=== PATIENT | female | born 1940 | race Caucasian/White ===

== ENCOUNTER 2017-10-22 08:05 | Day surgery (SDC) | payer MEDICARE, OTHER ==
[~2017-10-22 08:05] MED LIST: Buffered Lidocaine 0.9% SYRIN* 5 ML/SYR SYRINGE INTRADERM ONE
[2017-10-22] MEDS ORDERED: ceFAZolin 2 GM in NS PREMIX(*) 2 GM/100 ML BAG IVPB ONE (08:23)
[2017-10-22] MEDS ORDERED: Bupivacaine 0.25% SDV PF* 10 ML VIAL INJ ONE (10:19)
[2017-10-22] MEDS ORDERED: Midazolam* 1 MG/ML 5 ML VIAL (5 MG) ONE (10:21)
[2017-10-22] MEDS ORDERED: Bupivacaine 0.5% SDV PF* 30ML VIAL ONE (10:23)
[2017-10-22] MEDS ORDERED: fentaNYL* 50 MCG/ML 2 ML VIAL (100 MCG VIAL) ONE ×2 (10:39→12:11)
[2017-10-22] MEDS ORDERED: Propofol* 10 MG/ML 20 ML BTL IV PUSH ONE (10:55)
[2017-10-22] MEDS ORDERED: Ondansetron INJ* 2 MG/ML VIAL IV PRN (11:09)
[2017-10-22] MEDS ORDERED: fentaNYL* 50 MCG/ML 2 ML VIAL (100 MCG VIAL) IV PRN (11:09)
[2017-10-22] MEDS ORDERED: Naloxone* 0.4 MG/ML 1 ML VIAL IV PRN (11:09)
[2017-10-22] MEDS ORDERED: oxyCODONE/Acetamin 5/325 MG* TAB PO PRN (11:09)
[2017-10-22] MEDS ORDERED: Ketorolac INJ* 30 MG/ML 1 ML VIAL ONE (11:10)
[2017-10-22] MEDS ORDERED: oxyCODONE/Acetamin 5/325 MG* TAB ONE (12:11)
[2017-10-22 12:52] VITALS: BP 131/57
--- NOTE | 2017-10-22 22:13 | OP ---
DATE OF OPERATION: 10/22/17 - SDS DATE OF : 40 SURGEON: Reece Chan MD [employer] US[employer] INTERFACE DEVELOPER: Ana Garcia PA-C PRE-OP DIAGNOSIS: Severe right hallux valgus deformity with degenerative arthritis. POST-OP DIAGNOSIS: Severe right hallux valgus deformity with degenerative arthritis. OPERATIVE PROCEDURE: Right first MTP joint fusion. DESCRIPTION OF PROCEDURE: The patient was taken to the operating room where a longitudinal incision was made over the dorsum of the hallux. Medial, lateral flaps raised to allow visualization of the joint. There was cartilage damage noted on both sides of the joint. We subluxed the joint to allow intramedullary pinning of first the metatarsal to allow the orbital reamer and then on the proximal phalanx to allow the convex reamer. The matching bones were then opposed in neutral position and a 3.0 mm lag screw was placed at proximal medial to distal dorsal. We then fashioned a straight ___ 3.0 mm right plate to fit the dorsum first MTP joint fusion. Combination of locking and nonlocking screws were used and neutral alignment obtained with good fixation. X-rays intraoperatively showed satisfactory alignment. We then enclosed the capsule with 3-0 Vicryl, 4-0 nylon for the skin, and a compression dressing. [id number]/[facility] #: [id number] [facility]
--- NOTE | 2017-10-23 07:21 | RAD ---
INDICATION: Bunion operative reduction internal fixation right foot. COMPARISON: Comparison is made with a prior x-ray study of the right foot from October 11, 2017. TECHNIQUE: 2.5 seconds of intermittent fluoroscopic guidance were provided and a single spot film of the right foot was obtained in the operating room. FINDINGS: The patient is status post fusion of the first metatarsal-phalangeal joint. There is a metallic plate spanning the joint space transfixed with multiple screws. There is also single additional screw spanning the joint space. IMPRESSION: INTRAOPERATIVE CONTROL FILMS. CPT II Codes: G9500
== END 2017-10-22 13:20 | disposition home or self-care (01) ==
LOC: OR 08:05
PROVIDERS: ATTEND Orthopaedic Surgery
DX: M19.071 Primary osteoarthritis, right ankle and foot (principal); M20.11 Hallux valgus (acquired), right foot; I10 Essential (primary) hypertension; G47.33 Obstructive sleep apnea (adult) (pediatric); K21.9 Gastro-esophageal reflux disease without esophagitis
CPT/HCPCS: 76000; 88305; A9270-GY; C1713; J0690; J1885; J2250; J2704; J3010; J3490

== ENCOUNTER 2020-10-16 16:50 | Inpatient (IN) ==
[2020-10-16] MEDS ORDERED: Ondansetron 4 mg VIAL 2 MG/ML 2 ml VIAL IV ONE (20:31)
[2020-10-16 21:10] LABS: Rapid COVID-19 Molecular Undetected (Undetected)
[2020-10-16 21:23] LABS: Hematocrit 40 % (35-47); Mean Corpuscular HGB Conc 35 g/dL (31-36); Mean Corpuscular Hemoglobin 32 pg (27-31); Mean Corpuscular Volume 92 fL (80-97); Mean Platelet Volume 9.3 fL (7.4-10.4); Platelet Count 134 10^3/uL (150-450); Red Cell Distribution Width 12 % (10-15); White Blood Count 1.2 10^3/uL (3.5-10.8)
[2020-10-16 21:35] LABS: Influenza A Molecular Negative (Negative); Influenza B Molecular Negative (Negative)
[2020-10-16 21:37] LABS: ABS Lymphocytes 0.5 10^3/ul (1.0-4.8); Lymphocyte % 37.9 %; Nucleated Red Blood Cells % 0.4
[2020-10-16 21:40] LABS: Activated Partial Thrombo Time 28.9 seconds (26.0-38.0); Albumin 3.6 g/dL (3.2-5.2); Albumin/Globulin Ratio 1.4 (1-3); C Reactive Protein 195.12 mg/L (<8.01); Calcium 8.6 mg/dL (8.6-10.3); EGFR African American 112.1 (>60); EGFR Non-African American 92.6 (>60); Globulin 2.6 g/dL (2-4); INR 1.08 (0.86-1.15); Potassium 3.7 mmol/L (3.5-5.0); Total Bilirubin 0.8 mg/dL (0.2-1.0); Total Protein 6.2 g/dL (6.4-8.9)
[2020-10-16 21:41] LABS: Troponin I 0.01 ng/mL (<0.03)
[2020-10-16] MEDS ORDERED: Piperacillin/Tazobac ADVAN 3.375 GM in NS 0.9% 100 ml BAG 100 ML IV ONE (21:53)
[2020-10-16] MEDS ORDERED: VERAPAMIL 300 MG PO ONE (22:04)
[2020-10-16 22:11] LABS: ABS Neutrophils 0.7 10^3/ul (1.5-7.7)
[2020-10-16] MEDS ORDERED: Cefepime 2 GM in Dextrose 2 GM/50 ML BAG IV ONE (22:40)
[2020-10-16] MEDS ORDERED: Prochlorperazine 5 mg/ml 2 ml VIAL (10 mg) IV PRN (22:43)
[2020-10-16] MEDS ORDERED: NS 0.9% 1000 ml BAG 1,000 ML IV SCH (22:45)
[2020-10-17] MEDS: Enoxaparin 40 MG/0.4 ML SYR SUBCUT SCH ×2 (02:08→20:09)
[2020-10-17] MEDS: Nystatin SUSPENSION 100,000 UNITS/ML UDC PO SCH ×5 (02:08→20:09)
[2020-10-17 06:49] LABS: EGFR African American 112.1 (>60); EGFR Non-African American 92.6 (>60); Potassium 3.6 mmol/L (3.5-5.0)
[2020-10-17 06:52] LABS: ABS Lymphocytes 0.4 10^3/ul (1.0-4.8); ABS Monocytes 0.1 10^3/ul (0-0.8); ABS Neutrophils 0.2 10^3/ul (1.5-7.7); Eosinophil % 1.6 %; Hematocrit 37 % (35-47); Hemoglobin 12.9 g/dL (12.0-16.0); Lymphocyte % 58.3 %; Mean Corpuscular HGB Conc 35 g/dL (31-36); Mean Corpuscular Hemoglobin 32 pg (27-31); Mean Corpuscular Volume 92 fL (80-97); Mean Platelet Volume 9.3 fL (7.4-10.4); Nucleated Red Blood Cells % 0.1; Platelet Count 126 10^3/uL (150-450); Red Cell Distribution Width 12 % (10-15); White Blood Count 0.8 10^3/uL (3.5-10.8)
[2020-10-17] MEDS: Ondansetron 4 mg VIAL 2 MG/ML 2 ml VIAL IV PRN (08:41)
[2020-10-17] MEDS ORDERED: Cefepime 2 GM in Dextrose 2 GM/50 ML BAG IV SCH (09:00)
[2020-10-17] MEDS: Cefepime 2 GM in Dextrose 2 GM/50 ML BAG IV SCH (17:11)
[2020-10-18] MEDS: Cefepime 2 GM in Dextrose 2 GM/50 ML BAG IV SCH ×3 (01:29→17:15)
[2020-10-18 01:43] LABS: Urine Appearance Cloudy; Urine Bilirubin Negative (Negative); Urine Blood 1+ (Negative); Urine Color Yellow; Urine Glucose 3+(>=500 mg/dL) (Negative); Urine Ketones 1+ (Negative); Urine Nitrite Negative (Negative); Urine Protein 2+(100 mg/dL) (Negative); Urine Urobilinogen Negative (Negative)
[2020-10-18 01:50] LABS: Urine Bacteria Absent (Absent); Urine Red Blood Cell 1+(3-5/hpf) (Absent); Urine White Blood Cell Trace(0-5/hpf) (Absent)
[2020-10-18] MEDS: Nystatin SUSPENSION 100,000 UNITS/ML UDC PO SCH ×4 (09:29→20:16)
[2020-10-18 12:50] LABS: Hematocrit 36 % (35-47); Hemoglobin 12.4 g/dL (12.0-16.0); Mean Corpuscular HGB Conc 34 g/dL (31-36); Mean Corpuscular Hemoglobin 32 pg (27-31); Mean Corpuscular Volume 93 fL (80-97); Platelet Count 146 10^3/uL (150-450); Red Blood Count 3.89 10^6 /uL (3.70-4.87); Red Cell Distribution Width 12 % (10-15)
[2020-10-18 13:05] LABS: Calcium 7.9 mg/dL (8.6-10.3); EGFR African American 131.4 (>60); EGFR Non-African American 108.6 (>60); Potassium 3.2 mmol/L (3.5-5.0)
[2020-10-18] MEDS: NS 0.9% 1000 ml BAG 1,000 ML IV SCH (13:45)
[2020-10-18 14:56] LABS: ABS Lymphocytes 0.4 10^3/ul (1.0-4.8); ABS Monocytes 0.4 10^3/ul (0-0.8); ABS Neutrophils 0.1 10^3/ul (1.5-7.7); Eosinophil % 2.4 %; Lymphocyte % 41.4 %; Nucleated Red Blood Cells % 0.2
[2020-10-18] MEDS: Enoxaparin 40 MG/0.4 ML SYR SUBCUT SCH (20:01)
[2020-10-19] MEDS: Cefepime 2 GM in Dextrose 2 GM/50 ML BAG IV SCH ×3 (00:59→20:40)
[2020-10-19 05:50] LABS: Hematocrit 37 % (35-47); Mean Corpuscular HGB Conc 35 g/dL (31-36); Mean Corpuscular Hemoglobin 33 pg (27-31); Mean Corpuscular Volume 93 fL (80-97); Mean Platelet Volume 8.8 fL (7.4-10.4); Platelet Count 192 10^3/uL (150-450); Red Blood Count 3.98 10^6 /uL (3.70-4.87); Red Cell Distribution Width 12 % (10-15); White Blood Count 1.4 10^3/uL (3.5-10.8)
[2020-10-19 05:55] LABS: ABS Lymphocytes 0.4 10^3/ul (1.0-4.8); ABS Monocytes 0.8 10^3/ul (0-0.8); ABS Neutrophils 0.2 10^3/ul (1.5-7.7); Eosinophil % 0.4 %; Lymphocyte % 29.5 %; Nucleated Red Blood Cells % 0.1
[2020-10-19 06:09] LABS: EGFR African American 123.5 (>60); EGFR Non-African American 102.1 (>60); Potassium 3.5 mmol/L (3.5-5.0)
[2020-10-19] MEDS: NS 0.9% 1000 ml BAG 1,000 ML IV SCH (09:32)
[2020-10-19] MEDS: Nystatin SUSPENSION 100,000 UNITS/ML UDC PO SCH ×4 (09:41→20:19)
[2020-10-19] MEDS ORDERED: Remdesivir 100 mg Vial 200 MG in NS 0.9% 250 ml 210 ML IV ONE (15:15)
[2020-10-19] MEDS: Ondansetron 4 mg VIAL 2 MG/ML 2 ml VIAL IV PRN (20:19)
[2020-10-19] MEDS: Enoxaparin 40 MG/0.4 ML SYR SUBCUT SCH (20:20)
[2020-10-20] MEDS: Cefepime 2 GM in Dextrose 2 GM/50 ML BAG IV SCH ×2 (09:45→21:24)
[2020-10-20] MEDS: Nystatin SUSPENSION 100,000 UNITS/ML UDC PO SCH ×4 (09:46→21:25)
[2020-10-20 16:20] LABS: Hematocrit 39 % (35-47); Hemoglobin 13.8 g/dL (12.0-16.0); Mean Corpuscular HGB Conc 35 g/dL (31-36); Mean Corpuscular Hemoglobin 33 pg (27-31); Mean Corpuscular Volume 93 fL (80-97); Mean Platelet Volume 8.2 fL (7.4-10.4); Platelet Count 293 10^3/uL (150-450); Red Blood Count 4.22 10^6 /uL (3.70-4.87); Red Cell Distribution Width 13 % (10-15); White Blood Count 4.1 10^3/uL (3.5-10.8)
[2020-10-20 16:37] LABS: Calcium 8.4 mg/dL (8.6-10.3); EGFR African American 99.1 (>60); EGFR Non-African American 81.9 (>60); Potassium 3.6 mmol/L (3.5-5.0)
[2020-10-20] MEDS: Calcium Carb (TUMS) 500 mg CHEW TAB PO PRN ×2 (17:29→21:24)
[2020-10-20 17:55] LABS: Toxic Granulation 1+
[2020-10-20 18:30] LABS: ABS Lymphocytes 0.9 10^3/ul (1.0-4.8); ABS Monocytes 1.1 10^3/ul (0-0.8); ABS Neutrophils 2.1 10^3/ul (1.5-7.7); Eosinophil % 0.3 %; Lymphocyte % 22.3 %; Nucleated Red Blood Cells % 0.1
[2020-10-20] MEDS ORDERED: Remdesivir 100 mg Vial 100 MG in NS 0.9% 250 ml 230 ML IV SCH (21:00)
[2020-10-20] MEDS: Enoxaparin 40 MG/0.4 ML SYR SUBCUT SCH (21:24)
[2020-10-21 06:18] LABS: Hematocrit 33 % (35-47); Hemoglobin 11.7 g/dL (12.0-16.0); Mean Corpuscular HGB Conc 35 g/dL (31-36); Mean Corpuscular Hemoglobin 33 pg (27-31); Mean Corpuscular Volume 93 fL (80-97); Mean Platelet Volume 8.7 fL (7.4-10.4); Platelet Count 266 10^3/uL (150-450); Red Blood Count 3.59 10^6 /uL (3.70-4.87); Red Cell Distribution Width 12 % (10-15); White Blood Count 4.9 10^3/uL (3.5-10.8)
[2020-10-21 06:39] LABS: Albumin 2.8 g/dL (3.2-5.2); Albumin/Globulin Ratio 1.3 (1-3); Calcium 7.7 mg/dL (8.6-10.3); EGFR African American 134.3 (>60); Globulin 2.2 g/dL (2-4); Potassium 3.2 mmol/L (3.5-5.0); Total Bilirubin 0.2 mg/dL (0.2-1.0)
[2020-10-21 08:02] LABS: ABS Lymphocytes 1.3 10^3/ul (1.0-4.8); ABS Monocytes 1.4 10^3/ul (0-0.8); ABS Neutrophils 2.1 10^3/ul (1.5-7.7); Eosinophil % 0.2 %; Lymphocyte % 27.7 %; Nucleated Red Blood Cells % 0.1
[2020-10-21] MEDS: Nystatin SUSPENSION 100,000 UNITS/ML UDC PO SCH (11:25)
[2020-10-21] MEDS: Cefepime 2 GM in Dextrose 2 GM/50 ML BAG IV SCH (11:26)
[2020-10-21 11:47] VITALS: BP 138/60
== END 2020-10-21 14:00 | disposition home or self-care (01) | DRG 808 ==
LOC: ED 16:50 → MED 21:22 → SUATTDRO 22:41 → MED 22:41
PROVIDERS: ADMIT Hospitalist; ATTEND Internal Medicine Hematology & Oncology

== ENCOUNTER 2021-02-24 07:30 | Inpatient (IN) ==
[~2021-02-24 07:30] MED LIST changes: -Buffered Lidocaine 0.9% SYRIN* 5 ML/SYR SYRINGE INTRADERM ONE; +Buffered Lidocaine 1% SYRIN 1 ml INTRADERM ONE; +Lactated Ringers 1000 ml BAG 1,000 ML IV SCH
[2021-02-24] MEDS ORDERED: Heparin 5000 UNITS/ML 1 mL VIAL ONE (09:13)
[2021-02-24] MEDS ORDERED: ceFAZolin 2 GM in NS PREMIX 2 GM/100 ML BAG IVPB ONE (09:14)
[2021-02-24] MEDS ORDERED: fentaNYL 250 mcg/5 ml 50 MCG/ML 5 ml VIAL (250 MCG) ONE (09:35)
[2021-02-24] MEDS ORDERED: Bupivacaine 0.5% SDV PF 30ML VIAL ONE (10:29)
[2021-02-24] MEDS ORDERED: Propofol 10 MG/ML 20 ML BTL ONE ×2 (10:41→15:12)
[2021-02-24] MEDS ORDERED: Dexamethasone IV 4 MG/ML VIAL 1 ml VIAL ONE (11:20)
[2021-02-24] MEDS ORDERED: Ondansetron 4 mg VIAL 2 MG/ML 2 ml VIAL ONE (11:20)
[2021-02-24] MEDS ORDERED: Acetaminophen IV 1 GM/100ML 100 ML IV ONE (11:20)
[2021-02-24] MEDS ORDERED: Clindamycin 900 MG/D5W BAG 900 MG/50 ML BAG IVPB ONE (11:27)
[2021-02-24] MEDS ORDERED: HYDROmorphone 1 MG/1 ML SYRINGE IV PRN (11:36)
[2021-02-24] MEDS ORDERED: DiMENhydriNATE IV 50 mg/ml 1 ml VIAL IV PUSH PRN (11:36)
[2021-02-24] MEDS ORDERED: HYDROmorphone 0.5 MG/0.5 ML SYRINGE ONE (11:58)
[2021-02-24] MEDS ORDERED: HYDROcodone/ACETAMIN 5/325 mg TAB PO PRN (15:22)
[2021-02-24] MEDS ORDERED: Morphine 2 MG/ML SYRINGE IV PRN (15:24)
[2021-02-24] MEDS ORDERED: Benzocaine/Menthol LOZ PO PRN (15:27)
[2021-02-24] MEDS: Clindamycin 900 MG/D5W BAG 900 MG/50 ML BAG IVPB SCH (20:13)
[2021-02-24] MEDS: Heparin 5000 UNITS/ML 1 mL VIAL SUBCUT SCH (23:03)
[2021-02-25] MEDS: Clindamycin 900 MG/D5W BAG 900 MG/50 ML BAG IVPB SCH (05:24)
[2021-02-25] MEDS: Heparin 5000 UNITS/ML 1 mL VIAL SUBCUT SCH (06:26)
[2021-02-25 08:27] VITALS: BP 155/73
[2021-02-27] MEDS ORDERED: Scopolamine PATCH Remove NOTE PATCH OFF SCH (19:00)
== END 2021-02-25 10:40 | disposition home or self-care (01) | DRG 582 ==
LOC: EDSTATUS 07:30 → AA 09:30 → SSU 17:09
PROVIDERS: ADMIT Student in an Organized Health Care Education/Training Program; ATTEND Student in an Organized Health Care Education/Training Program

== ENCOUNTER 2023-11-22 08:30 | Inpatient (IN) ==
[2023-11-22] MEDS: Piperacillin/Tazobac 3.375 BAG 3.375 GM/100 ML BAG IV ONE (08:48)
[2023-11-22 08:52] LABS: ABS Lymphocytes 0.5 10^3/uL (1.0-4.8); ABS Monocytes 0.2 10^3/uL (0.0-0.9); ABS Neutrophils 5.7 10^3/uL (1.5-7.6); Eosinophil % 0.5 %; Hematocrit 42.5 % (35-45); Hemoglobin 14.1 g/dL (11.5-14.3); Lymphocyte % 8.3 %; Mean Corpuscular Hemoglobin 30.8 pg (27-33); Mean Corpuscular Hgb Conc 33.2 g/dL (31-36); Mean Corpuscular Volume 92.8 fL (80-97); Mean Platelet Volume 7.8 fL (7.5-11.2); Platelet Count 259 10^3/uL (150-450); Red Blood Count 4.58 10^6/uL (3.63-4.92); Red Cell Distribution Width 13.3 % (12-17); White Blood Count 6.5 10^3/uL (3.8-11.8)
[2023-11-22] MEDS: Lactated Ringers SEPSIS* BAG 1,370 ML IV ONE (09:25)
[2023-11-22 09:42] LABS: Activated Partial Thrombo Time 27.4 seconds (26.0-38.0); INR 1.1 (0.85-1.14)
[2023-11-22 09:48] LABS: Albumin 4.1 g/dL (3.2-5.2); Albumin/Globulin Ratio 1.7 (1-3); C Reactive Protein 87.13 mg/L (<8.01); Calcium 9.3 mg/dL (8.6-10.3); Creatinine, Serum 0.83 mg/dL (0.51-0.95); Globulin 2.4 g/dL (2-4); Potassium 4.2 mmol/L (3.5-5.0); Total Protein 6.5 g/dL (6.4-8.9); eGFR CKD-EPI 69.9 (>60)
[2023-11-22 10:02] LABS: Venous Bicarbonate HCO3 22.7 mmol/L (24-28)
[2023-11-22] MEDS: Benzocaine/Menthol LOZ PO PRN (10:14)
[2023-11-22] MEDS: Vancomycin 1,250 MG in NS 0.9% 250 ml 250 ML IVPB ONE (10:14)
[2023-11-22 10:29] LABS: High Sensitivity Troponin 1 Hr 1188 pg/mL (<15)
[2023-11-22 10:29] LABS: Urine Appearance Slightly Cloudy; Urine Bilirubin Negative (Negative); Urine Blood 1+ (Small) (Negative); Urine Color Yellow; Urine Ketones 1+ (15mg/dL) (Negative); Urine Protein 3+ (>=300 mg/dL) (Negative); Urine Specific Gravity 1.015 (1.005-1.030); Urine pH 5.5 (5.0-8.0)
[2023-11-22 10:30] LABS: Urine Nitrite Positive (Negative); Urine Urobilinogen 0.2 (Negative) (Negative)
[2023-11-22 10:43] LABS: Urine Bacteria 2+ /HPF (Absent); Urine Red Blood Cell Trace(0-2/hpf) /HPF (0-Trace); Urine Squamous Epithelial Cell Present /HPF (Absent); Urine White Blood Cell 3+(>20/hpf) /HPF (0-Trace)
[2023-11-22] MEDS ORDERED: Sulfur Hexaflouride MICROSPHR 25 MG VIAL IV PRN (10:44)
[2023-11-22] MEDS: Iodixanol (CONTRAST) 320 MG/ML 100 ML SDV IV ONE (10:58)
[2023-11-22] MEDS: Sulfur Hexaflouride MICROSPHR 25 MG VIAL IV PRN (11:55)
[2023-11-22 12:14] LABS: High Sensitivity Troponin 3 Hr 1941 pg/mL (<15)
[2023-11-22] MEDS ORDERED: Dextrose 50% Syringe 50 ml 25 GM/50 ML SYRINGE IV PUSH PRN (13:13)
[2023-11-22] MEDS: Heparin 5000 UNITS/ML 1 mL VIAL IV SCH (14:41)
[2023-11-22] MEDS: Heparin DRIP 25,000 UNITS BAG 25,000 UNITS/250 ML BAG IV SCH (14:42)
[2023-11-22 14:52] LABS: ABS Lymphocytes 0.6 10^3/uL (1.0-4.8); ABS Monocytes 0.8 10^3/uL (0.0-0.9); ABS Neutrophils 10.4 10^3/uL (1.5-7.6); Eosinophil % 0.1 %; Hematocrit 38.8 % (35-45); Hemoglobin 12.7 g/dL (11.5-14.3); Lymphocyte % 5.3 %; Mean Corpuscular Hemoglobin 30.4 pg (27-33); Mean Corpuscular Hgb Conc 32.8 g/dL (31-36); Mean Corpuscular Volume 92.7 fL (80-97); Mean Platelet Volume 7.7 fL (7.5-11.2); Platelet Count 269 10^3/uL (150-450); Red Blood Count 4.18 10^6/uL (3.63-4.92); Red Cell Distribution Width 13.2 % (12-17); White Blood Count 11.8 10^3/uL (3.8-11.8)
[2023-11-22] MEDS: cefTRIAXone 1 gm/50 mL D5W 1 GM/50 ML BAG IV SCH (15:11)
[2023-11-22] MEDS: NS 0.9% 1000 ml BAG 1,000 ML IV SCH (15:26)
[2023-11-22] MEDS ORDERED: Fluticasone NASAL SPRAY 50MCG 16 gm SPRAY BTL BOTH NARES SCH (15:30)
[2023-11-22 15:58] LABS: Creatinine, Serum 0.7 mg/dL (0.51-0.95); eGFR CKD-EPI 85.8 (>60)
[2023-11-22 17:16] LABS: INR 1.21 (0.85-1.14)
[2023-11-23 04:37] LABS: ABS Basophils 0.1 10^3/uL (0.0-0.1); ABS Eosinophils 0.2 10^3/uL (0.0-0.5); ABS Lymphocytes 1.5 10^3/uL (1.0-4.8); ABS Monocytes 1.1 10^3/uL (0.0-0.9); ABS Neutrophils 7.9 10^3/uL (1.5-7.6); Eosinophil % 2.2 %; Hematocrit 33.9 % (35-45); Hemoglobin 11.5 g/dL (11.5-14.3); Lymphocyte % 14.1 %; Mean Corpuscular Hemoglobin 31.6 pg (27-33); Mean Corpuscular Hgb Conc 34.1 g/dL (31-36); Mean Corpuscular Volume 92.7 fL (80-97); Mean Platelet Volume 8.1 fL (7.5-11.2); Platelet Count 227 10^3/uL (150-450); Red Blood Count 3.65 10^6/uL (3.63-4.92); Red Cell Distribution Width 13.2 % (12-17); White Blood Count 10.8 10^3/uL (3.8-11.8)
[2023-11-23 04:58] LABS: Calcium 8.2 mg/dL (8.6-10.3); Creatinine, Serum 0.62 mg/dL (0.51-0.95); Magnesium 1.6 mg/dL (1.9-2.7); Potassium 3.6 mmol/L (3.5-5.0); eGFR CKD-EPI 88.3 (>60)
[2023-11-23] MEDS: Magnesium Sulf 4 GM/100 ML IV 4,000 MG/100 ML BAG IVPB ONE (06:07)
[2023-11-23] MEDS ORDERED: Potassium EFFERVES 25 meq TAB PO ONE (09:00)
[2023-11-23] MEDS: ANASTROZOLE 1 MG PO SCH (09:49)
[2023-11-23] MEDS ORDERED: Heparin 2 UNITS/ML 1000 mls 2,000 ML IV ONE (09:51)
[2023-11-23] MEDS ORDERED: nitroGLYCERIN DRIP 25,000 MCG/250 ML BTL ONE (09:51)
[2023-11-23] MEDS ORDERED: niCARdipine 0.1MG/ML IVPREMIX 0 MG/0 ML BAG IV ONE (09:51)
[2023-11-23] MEDS ORDERED: Heparin 1,000 UNIT/ML 10 ml (10,000 UNITS) CATHLAB/DIALYSIS ONE (09:51)
[2023-11-23] MEDS ORDERED: Lidocaine 1% MPF 5 ML VIAL ONE (09:51)
[2023-11-23] MEDS ORDERED: fentaNYL 100 mcg/2 ml 50 MCG/ML VIAL ONE (09:52)
[2023-11-23] MEDS ORDERED: Midazolam 5 mg/5 ml VIAL 1 mg/ml 5 ml VIAL (5 mg) ONE (09:52)
[2023-11-23] MEDS ORDERED: Iohexol 350 (CONTRAST) 200 ML MDV IV ONE (09:53)
[2023-11-23] MEDS ORDERED: VERAPAMIL 2.5 MG/ML 2 ML VIAL ** 5 mg/2 ml ONE (09:58)
[2023-11-23] MEDS: NS 0.9% 1000 ml BAG 1,000 ML IV SCH (11:36)
[2023-11-23] MEDS: cefTRIAXone 2 gm/50 mL D5W 2 GM/50 ML BAG IV SCH (13:55)
[2023-11-24 05:13] LABS: ABS Basophils 0.1 10^3/uL (0.0-0.1); ABS Eosinophils 0.3 10^3/uL (0.0-0.5); ABS Lymphocytes 1.6 10^3/uL (1.0-4.8); ABS Monocytes 0.9 10^3/uL (0.0-0.9); ABS Neutrophils 5.7 10^3/uL (1.5-7.6); Eosinophil % 3.5 %; Hematocrit 34.1 % (35-45); Hemoglobin 11.3 g/dL (11.5-14.3); Lymphocyte % 18.6 %; Mean Corpuscular Hemoglobin 30.4 pg (27-33); Mean Corpuscular Hgb Conc 33.1 g/dL (31-36); Mean Corpuscular Volume 91.9 fL (80-97); Mean Platelet Volume 7.8 fL (7.5-11.2); Platelet Count 231 10^3/uL (150-450); Red Blood Count 3.71 10^6/uL (3.63-4.92); Red Cell Distribution Width 13.1 % (12-17); White Blood Count 8.6 10^3/uL (3.8-11.8)
[2023-11-24 05:53] LABS: Calcium 8.2 mg/dL (8.6-10.3); Creatinine, Serum 0.66 mg/dL (0.51-0.95); Magnesium 1.9 mg/dL (1.9-2.7); Potassium 3.8 mmol/L (3.5-5.0)
[2023-11-24] MEDS: cefTRIAXone 2 gm/50 mL D5W 2 GM/50 ML BAG IV SCH (09:57)
[2023-11-24 10:35] VITALS: BP 140/73
== END 2023-11-24 13:15 | disposition home or self-care (01) | DRG 871 ==
LOC: ED 08:30 → EDHOLD 08:30 → OBSVTOIN 12:05 → INTOOBSV 12:05 → ICU 12:05
PROVIDERS: ADMIT Internal Medicine; ATTEND Internal Medicine